=== PATIENT | female | born 1960 | race Caucasian/White ===

== ENCOUNTER 2021-04-11 00:30 | Emergency (ER) | payer SELFPAY ==
[~2021-04-11] VITALS: Ht 165.1 cm; Wt 83.9 kg
[2021-04-11] MEDS ORDERED: MAG HYDROX/AL HYDROX/SIMETH 30 ML UDC ONE (01:08)
[2021-04-11] MEDS ORDERED: LIDOCAINE VISCOUS 2% UD 15 ML UDC ONE (01:08)
[2021-04-11] MEDS ORDERED: ONDANSETRON 4 MG TAB.RAPDIS ONE (01:08)
[2021-04-11] MEDS: LIDOCAINE VISCOUS 2% UD 15 ML UDC MM ONE (01:12)
[2021-04-11] MEDS: MAG HYDROX/AL HYDROX/SIMETH 30 ML UDC PO ONE (01:12)
[2021-04-11] MEDS: ONDANSETRON 4 MG TAB.RAPDIS SL ONE (01:12)
[2021-04-11] MEDS ORDERED: PANT40TA2 PO (01:21)
--- NOTE | 2021-04-11 01:28 | NUR ---
Patient discharged to home in stable condition. Written and verbal after care instructions given. Patient verbalizes understanding of instruction. RX GIVEN
[2021-04-11 01:29] VITALS: BP 134/80
== END 2021-04-11 01:30 | disposition home or self-care (01) ==
LOC: EDSEX 00:30 → ER 00:45
DX: K21.9 Gastro-esophageal reflux disease without esophagitis (principal); I10 Essential (primary) hypertension; Z79.899 Other long term (current) drug therapy
CPT/HCPCS: 99283; Q0162